=== PATIENT | female | born 1970 | race Two or more races ===

== ENCOUNTER 2020-11-13 21:17 | Emergency (ER) | payer SELFPAY ==
[~2020-11-13] VITALS: Ht 160 cm; Wt 90.9 kg
[~2020-11-13 21:17] MED LIST: OXYC1TAB15 PO
[2020-11-13 22:13] LABS: BASO % 0 % (0-3); EOS # 0.5 x10^3/uL (0.0-0.7); EOS % 5 % (0-3); HEMATOCRIT 42.2 % (36.0-47.0); LYMPH # 1.5 x10^3/uL (1.0-4.8); LYMPH % 14 % (24-48); MEAN CORPUSCULAR HEMOGLOBIN 28 pg (25-35); MEAN CORPUSCULAR HGB CONC 33 g/dL (31-37); MEAN CORPUSCULAR VOLUME 83 fL (79-100); MONO # 0.5 x10^3/uL (0.0-1.1); MONO % 5 % (0-9); NEUT % 76 % (31-73); PLATELET COUNT 303 x10^3/uL (140-400); RED BLOOD COUNT 5.06 x10^6/uL (3.50-5.40); WHITE BLOOD COUNT 10.5 x10^3/uL (4.0-11.0)
[2020-11-13 22:15] LABS: BILIRUBIN,URINE NEGATIVE (NEG); CLARITY,URINE CLEAR; COLOR,URINE YELLOW; NITRITE,URINE NEGATIVE (NEG); PH,URINE 8.5 (<5.0-8.0); PROTEIN,URINE NEGATIVE (NEG-TRACE)
[2020-11-13 22:20] LABS: BACTERIA,URINE FEW /HPF (0-FEW)
[2020-11-13 22:35] LABS: CALCIUM 9.2 mg/dL (8.5-10.1); CREATININE 0.7 mg/dL (0.6-1.0); GFR 88.6; POTASSIUM 3.6 mmol/L (3.5-5.1)
[2020-11-13 22:43] LABS: ALBUMIN 3.3 g/dL (3.4-5.0); ALBUMIN/GLOBULIN RATIO 0.8 (1.0-1.7); MAGNESIUM 1.9 mg/dL (1.8-2.4); TOTAL BILIRUBIN 0.5 mg/dL (0.2-1.0); TOTAL PROTEIN 7.7 g/dL (6.4-8.2)
[2020-11-13] MEDS ORDERED: IV NORMAL SALINE 1000ML BAG 1,000 ML IV ONE (23:00)
[2020-11-13] MEDS ORDERED: ONDANSETRON PF 4 MG/2 ML VIAL. IV ONE (23:00)
[2020-11-13] MEDS ORDERED: fentaNYL PF VIAL 100 MCG/2 ML VIAL IV ONE (23:00)
--- NOTE | 2020-11-13 23:19 | ED.ADGEN ---
Past Medical History Past Medical History: No Pertinent History Past Surgical History: Tubal ligation Smoking Status: Never Smoker Alcohol Use: None General Adult EDM: Chief Complaint: ABDOMINAL PAIN HPI: HPI: Patient is a 50 year old female who presents emergency department with complaints of nausea, vomiting, and diarrhea that began at 7:00 this morning. Patient reports that she has had at 8 episodes of vomiting and 3 episodes of diarrhea since onset of her symptoms. She complains of bilateral lower a bdominal pain. Patient denies any blood in her emesis or her stools. She denies any fever, cough, shortness of breath, chest pain, palpitations, dizziness, dysuria, hematuria, increased urinary frequency, body aches, or fatigue. She denies any decreased in her sense of taste or smell. Patient de nies any known COVID-19 exposure. She currently rates her pain a 10 out of 10 on pain scale, she denies any alleviating or exacerbating factors. Patient reports she does have problems with constipation at times but denies any recent constipation. Review of Systems: Review of Systems: Complete ROS is negative unless otherwise noted in HPI. Current Medications: Current Medications Medications (Trade) Dose Ordered Sig/Erna Start Time Stop Time Status Last Admin Dose Admin Famotidine (Pepcid Vial) 20 mg 1X ONCE 11/13/20 23:30 11/13/20 23:31 DC 11/14/20 00:25 20 MG Fentanyl Citrate (Fentanyl 2ml Vial) 50 mcg 1X ONCE 11/13/20 23:00 11/13/20 23:01 DC 11/13/20 23:04 50 MCG Info (CONTRAST GIVEN -- Rx MONITORING) 1 each PRN DAILY PRN 11/14/20 00:30 11/16/20 00:29 Iohexol (Omnipaque 300 Mg/ml) 75 ml 1X ONCE 11/14/20 00:30 11/14/20 00:31 DC Ondansetron HCl (Zofran) 4 mg 1X ONCE 11/13/20 23:00 11/13/20 23:01 DC 11/13/20 23:04 4 MG Sodium Chloride 1,000 ml @ 1,000 mls/hr 1X ONCE 11/13/20 23:00 11/13/20 23:59 DC 11/13/20 23:04 1,000 MLS/HR Allergies: Allergies: Allergies Coded Allergies Type Severity Reaction Last Updated Verified Penicillins Allergy Intermediate 12/27/19 Yes Physical Exam: PE: See Above Constitutional: Well developed, well nourished, no acute distress, non-toxic appearance. [] HENT: Normocephalic, atraumatic, bilateral external ears normal, nose normal. [] Eyes: PERRLA, EOMI, conjunctiva normal, no discharge. [] Neck: Normal range of motion, no stridor. [] Cardiovascular:Heart rate regular rhythm Lungs & Thorax: Respirations even and unlabored, no retractions, no respiratory distress Abdomen: soft, lower left quadrant and right lower quadrant tenderness to palpation, no rebound tenderness, no guarding, Skin: Warm, dry, no erythema, no rash. [] Extremities: No cyanosis, ROM intact, no edema. [] Neurologic: Alert and oriented X 3, no focal deficits noted. [] Psychologic: Affect normal, judgement normal, mood normal. [] Current Patient Data: Labs: Laboratory Tests Test 11/13/20 21:23 11/13/20 21:29 11/13/20 22:00 Urine Collection Type Unknown Urine Color Yellow Urine Clarity Clear Urine pH 8.5 (<5.0-8.0) Urine Specific [place] 1.015 (1.000-1.030) Urine Protein Negative mg/dL (NEG-TRACE) Urine Glucose (UA) Negative mg/dL (NEG) Urine Ketones (Stick) Negative mg/dL (NEG) Urine Blood Negative (NEG) Urine Nitrite Negative (NEG) Urine Bilirubin Negative (NEG) Urine Urobilinogen Dipstick 1.0 mg/dL (0.2 mg/dL) Urine Leukocyte Esterase Small (NEG) Urine RBC 1-2 /HPF (0-2) Urine WBC 1-4 /HPF (0-4) Urine Squamous Epithelial Cells Mod /LPF Urine Bacteria Few /HPF (0-FEW) Urine Mucus Slight /LPF POC Urine HCG, Qualitative Hcg negative (Negative) White Blood Count 10.5 x10^3/uL (4.0-11.0) Red Blood Count 5.06 x10^6/uL (3.50-5.40) Hemoglobin 14.0 g/dL (12.0-15.5) Hematocrit 42.2 % (36.0-47.0) Mean Corpuscular Volume 83 fL (79-100) Mean Corpuscular Hemoglobin 28 pg (25-35) Mean Corpuscular Hemoglobin Concent 33 g/dL (31-37) Red Cell Distribution Width 15.0 % (11.5-14.5) H Platelet Count 303 x10^3/uL (140-400) Neutrophils (%) (Auto) 76 % (31-73) H Lymphocytes (%) (Auto) 14 % (24-48) L Monocytes (%) (Auto) 5 % (0-9) Eosinophils (%) (Auto) 5 % (0-3) H Basophils (%) (Auto) 0 % (0-3) Neutrophils # (Auto) 8.0 x10^3/uL (1.8-7.7) H Lymphocytes # (Auto) 1.5 x10^3/uL (1.0-4.8) Monocytes # (Auto) 0.5 x10^3/uL (0.0-1.1) Eosinophils # (Auto) 0.5 x10^3/uL (0.0-0.7) Basophils # (Auto) 0.0 x10^3/uL (0.0-0.2) Sodium Level 135 mmol/L (136-145) L Potassium Level 3.6 mmol/L (3.5-5.1) Chloride Level 98 mmol/L (98-107) Carbon Dioxide Level 27 mmol/L (21-32) Anion Gap 10 (6-14) Blood Urea Nitrogen 13 mg/dL (7-20) Creatinine 0.7 mg/dL (0.6-1.0) Estimated GFR (Cockcroft-Gault) 88.6 BUN/Creatinine Ratio 19 (6-20) Glucose Level 122 mg/dL (70-99) H Calcium Level 9.2 mg/dL (8.5-10.1) Magnesium Level 1.9 mg/dL (1.8-2.4) Total Bilirubin 0.5 mg/dL (0.2-1.0) Aspartate Amino Transferase (AST) 21 U/L (15-37) Alanine Aminotransferase (ALT) 30 U/L (14-59) Alkaline Phosphatase 139 U/L (46-116) H Total Protein 7.7 g/dL (6.4-8.2) Albumin 3.3 g/dL (3.4-5.0) L Albumin/Globulin Ratio 0.8 (1.0-1.7) L Lipase 103 U/L (73-393) Laboratory Tests 11/13/20 22:00 Laboratory Tests 11/13/20 22:00 Vital Signs: Vital Signs Date Time Temp Pulse Resp B/P (MAP) Pulse Ox O2 Delivery O2 Flow Rate FiO2 11/13/20 23:04 Room Air 11/13/20 22:00 98.3 92 13 87/49 (62) 98 98.3 EKG: EKG: [] Heart Score: Risk Factors: Risk Factors: DM, Current or recent (<one month) smoker, HTN, HLP, family history of CAD, obesity. Risk Scores: Score 0 - 3: 2.5% MACE over next 6 weeks - Discharge Home Score 4 - 6: 20.3% MACE over next 6 weeks - Admit for Clinical Observation Score 7 - 10: 72.7% MACE over next 6 weeks - Early Invasive Strategies Radiology/Procedures: Radiology/Procedures: CT scan of the abdomen and pelvis with contrast 11/14/2020 CLINICAL HISTORY: Lower abdominal pain with nausea and vomiting. TECHNIQUE: After the intravenous administration of 75 cc of Omnipaque 300 only, contiguous, 5 mm axial sections were obtained through the abdomen and pelvis. One or more of the following individualized dose reduction techniques were utilized for this study: 1. Automated exposure control. 2. Adjustment of the mA and/or kV according to patient size. 3. Use of iterative reconstruction technique. FINDINGS: Comparison study is dated 12/27/2019. Images through the lung bases demonstrate minimal dependent subsegmental atelectasis bilaterally. Segmental atelectasis is seen involving the right middle lobe. The liver parenchyma has a decreased attenuation consistent with fatty infiltration. The liver is mildly enlarged measuring 23 cm in length. The spleen, pancreas, adrenal glands and left kidney are within normal limits. Two 2 to 3 mm nonobstructing calculi are seen involving the mid/lower pole of the right kidney. No ureteral calculus is seen. There is no definite evidence of obstruction of either collecting system. The gallbladder is distended. No free fluid or free air is seen within the abdomen. Surgical changes are seen consistent with an appendectomy. Mildly dilated fluid-filled small bowel loops are seen within the lower abdomen/right lower quadrant abdomen without definite evidence of bowel obstruction. This could reflect an ileus. A small fat-containing umbilical hernia is seen which measures 1.5 cm in size. Images through the pelvis demonstrate the urinary bladder distended with urine. No adnexal mass is seen. No free fluid is noted. Calcifications are seen within the pelvis consistent with phleboliths. No free fluid is noted. Minimal S-shaped curvature of the thoracolumbar spine is seen. Degenerative changes are seen involving lower thoracic and throughout the lumbar spine along with both hips. IMPRESSION: Mildly dilated fluid-filled small bowel loops are seen within the lower abdomen without definite evidence of bowel obstruction. This could reflect an ileus. No additional acute abnormality is seen. Electronically signed by: Shola Leger MD (11/14/2020 12:30 AM) [id number] Course & Med Decision Making: Course & Med Decision Making Pertinent Labs and Imaging studies reviewed. (See chart for details) 0000-report given to Dr. Khalil at this time. 50F initially presented emergency department new onset of abdominal pain as well as nausea and vomiting. Initially seen by nurse practitioner and labs and a CT scan were ordered. This time there is no significant abnormalities but at this time most likely explanation is an acute gastroenteritis. This time we will plan to discharge patient Dragon Disclaimer: Dragon Disclaimer: This electronic medical record was generated, in whole or in part, using a voice recognition dictation system. Departure Departure Impression: Primary Impression: Acute gastroenteritis Disposition: 01 DC HOME SELF CARE/HOMELESS Condition: Referrals: NO PCP (PCP) Patient Instructions: Viral Gastroenteritis Additional Instructions: EMERGENCY DEPARTMENT GENERAL DISCHARGE INSTRUCTIONS Thank you for coming to [facility] Emergency Department (ED) today and trusting us with you care. We trust that you had a positive experience in our Emergency Department. If you wish to speak to the department management, you may call the Director at [phone]. YOUR FOLLOW UP INSTRUCTIONS ARE FOLLOWS: 1. Do you have a private Doctor? If you do not have a private doctor, please ask for a resource list of physicians or clinics that may be able to assist you with follow up care. 2. The Emergency Physicain has interpreted your x-rays. The X-Ray specialist will also review them. If there is a change in the findings, you will be notified in 48 hours when at all possible. 3. A lab test or culture has been done, your results will be reviewed and you will be notified if you need a change in treatment. ADDITIONAL INSTRUCTIONS AND INFORMATION: 1. Your care today has been supervised by a physician who is specially trained in emergency care. Many problems require more than one evaluation for a complete diagnosis and treatment. We recommend that you schedule your follow up appointment as recommended to ensure complete treatment of you illness or injury. If you are unable to obtain follow up care and continue to have a problem, or if your condition worsens, we recommend that you return to the ED. 2. We are not able to safely determine your condition over the phone nor are we able to give sound medical advice over the phone. For these safety reasons, if you call for medical advice we will ask you to come to the ED for further evaluation. 3. If you have any questions regarding these discharge instructions please call the ED at [phone]. SAFETY INFORMATION: In the interest of safety, wellness, and injury prevention; we encourage you to wear your sealbelt, if you smoke; quite smoking, and we encourage family to use a protective helmet for bicycling and other sporting events that present an increased risk for head injury. IF YOUR SYMPTOMS WORSEN OR NEW SYMPTOMS DEVELOP, OR YOU HAVE CONCERNS ABOUT YOUR CONDITION; OR IF YOUR CONDITION WORSENS WHILE YOU ARE WAITING FOR YOUR FOLLOW UP APPOINTMENT; EITHER CONTACT YOUR PRIMARY CARE DOCTOR, THE PHYSICIAN WHOSE NAME AND NUMBER YOU WERE GIVEN, OR RETURN TO THE ED IMMEDIATELY. Scripts Ondansetron Hcl (ZOFRAN) 4 Mg Tablet 1 TAB PO Q8HRS, #30 TAB Prov: QUYEN KHALIL MD 11/14/20 KECIA JAIN APRN Nov 13, 2020 23:19 QUYEN KHALIL MD Nov 14, 2020 00:46
[2020-11-13] MEDS ORDERED: FAMOTIDINE 20 MG/2 ML VIAL IVP ONE (23:30)
[2020-11-14] MEDS ORDERED: IOHEXOL 300 MG/ML 100ML VIAL. IV ONE (00:30)
[2020-11-14] MEDS ORDERED: CONTRAST GIVEN. MC PRN (00:30)
--- NOTE | 2020-11-14 00:33 | RAD ---
CT scan of the abdomen and pelvis with contrast 11/14/2020 CLINICAL HISTORY: Lower abdominal pain with nausea and vomiting. TECHNIQUE: After the intravenous administration of 75 cc of Omnipaque 300 only, contiguous, 5 mm axia l sections were obtained through the abdomen and pelvis. One or more of the following individualized dose reduction techniques were utilized for this study: 1. Automated exposure control. 2. Adjustment of the mA and/or kV according to patient size. 3. Use of iterative reconstruction technique. FINDINGS: Comparison study is dated 12/27/2019. Images through the lung bases demonstrate minimal dependent subsegmental atelectasis bilaterally. Seg mental atelectasis is seen involving the right middle lobe. The liver parenchyma has a decreased attenuation consistent with fatty infiltration. The liver is mil dly enlarged measuring 23 cm in length. The spleen, pancreas, adrenal glands and left kidney are with in normal limits. Two 2 to 3 mm nonobstructing calculi are seen involving the mid/lower pole of the r ight kidney. No ureteral calculus is seen. There is no definite evidence of obstruction of either col lecting system. The gallbladder is distended. No free fluid or free air is seen within the abdomen. Surgical changes are seen consistent with an appendectomy. Mildly dilated fluid-filled small bowel loops are seen wit hin the lower abdomen/right lower quadrant abdomen without definite evidence of bowel obstruction. Th is could reflect an ileus. A small fat-containing umbilical hernia is seen which measures 1.5 cm in s ize. Images through the pelvis demonstrate the urinary bladder distended with urine. No adnexal mass is se en. No free fluid is noted. Calcifications are seen within the pelvis consistent with phleboliths. No free fluid is noted. Minimal S-shaped curvature of the thoracolumbar spine is seen. Degenerative changes are seen involvin g lower thoracic and throughout the lumbar spine along with both hips. IMPRESSION: Mildly dilated fluid-filled small bowel loops are seen within the lower abdomen without d efinite evidence of bowel obstruction. This could reflect an ileus. No additional acute abnormality i s seen. Electronically signed by: Shola Leger MD (11/14/2020 12:30 AM) [id number]
[2020-11-14 00:45] VITALS: BP 87/49
[2020-11-14] MEDS ORDERED: ONDA4TAB7 PO (00:46)
[2020-11-14] MEDS ORDERED: IOHEXOL 300 MG/ML 100ML VIAL. ONE (04:52)
== END 2020-11-14 01:01 | disposition home or self-care (01) ==
LOC: ER 21:17
DX: K52.9 Noninfective gastroenteritis and colitis, unspecified (principal); R11.2 Nausea with vomiting, unspecified; R10.32 Left lower quadrant pain; R53.83 Other fatigue; Z98.51 Tubal ligation status
CPT/HCPCS: 36415; 74177; 80053; 81001; 81025; 83690; 83735; 85025; 87086; 96361; 96374; 96375; 99285; J2405; J3010; J3490; J7030; Q9967